=== PATIENT | female | born 1965 | race Caucasian/White ===

== ENCOUNTER → 2019-11-26 10:00 | Outpatient (BNVA) | payer BC, SELFPAY | PROVIDERS: Visit Provider Family Medicine | DX: Z13.6 Encounter for screening for cardiovascular disorders (principal) | CPT/HCPCS: 80053; 80061; 85025 ==

== ENCOUNTER 2020-01-07 14:53 | Outpatient (CLI) | payer BC, SELFPAY ==
--- NOTE | 2020-01-07 15:00 | MM_ITS ---
WS: [id number] BILATERAL SCREENING MAMMOGRAM WITH JONO DISPLACEMENT VIEWS. CAD PERFORMED. HISTORY: screening mammogram COMPARISON: 05/17/2012 Bilateral craniocaudal and mediolateral like views are performed. Jono displacement views in CC and MLO projection also performed. Breasts composition: There are scattered areas of fibroglandular density. Implants are intact. No adjacent calcifications. No asymmetries or nodules. No nipple retraction. MM/[id number] IMPRESSION: BI-RADS: 2-Benign FOLLOW-UP: 1 Year Follow-up
== END 2020-01-07 14:54 | disposition home or self-care (01) ==
LOC: RADSHAW 14:56
PROVIDERS: PCP Family Medicine; Visit Provider Family Medicine
DX: Z12.31 Encounter for screening mammogram for malignant neoplasm of breast (principal)
CPT/HCPCS: 77067

== ENCOUNTER 2020-02-03 08:13 | Emergency (ER) | payer BC, SELFPAY ==
[2020-02-03 08:25] VITALS: BP 155/125; PULSE 91; RESP 18; TEMP 36.3; O2SAT 97; BMI 28.3
--- NOTE | 2020-02-03 08:41 | W.ED.FEMALGU ---
HPI - Female Genitourinary General: Chief complaint: Urogenital-Female Stated complaint: ABD PAIN Time Seen by Provider: 02/03/20 08:23 History of Present Illness: HPI Narrative: 54-year-old female presents emergency room with complaint of right flank mid abdominal pain that began at 3 AM this morning she has had dysuria urgency and frequency she denies any hematuria she did have a little chills at home pain radiates down into the suprapubic area. She has no known history of nephrolithiasis. She is not had any hematuria dysuria urgency or frequency. MD elicited complaint: dysuria Onset (ago): hour(s) Location of symptoms: other (Right side abdominal pain flank/mid abdomen) Severity: moderate Female Urogenital Radiation: Non-Radiating Quality of pain: cramping Consistency: constant Vaginal discharge: none Vaginal bleeding: none Urinary symptoms: Difficulty Urinating, Dysuria, Flank Pain, Frequency and Urgency Exacerbating factors: urination Relieving factors: none Associated symptoms: Reports abdominal pain; Deny short of breath, fevers/chills, headache(s), nausea, rash, syncope, vaginal bleeding, vaginal discharge or weakness Treatment prior to arrival: none Review of Systems Const: Denies: fever(s), chills, body aches, change in appetite, fatigue or malaise ENMT: Denies: throat pain, ear or mastoid pain, nasal discharge or nasal congestion Card: Denies: syncope Resp: Denies: dyspnea, productive cough or non-productive cough GI: Reports: abdominal pain; Denies: nausea : Denies: vaginal discharge Skin/Breast: Denies: rash or pruritus Neuro: Denies: headache(s) PFS ED PFSH: Medical History No pertinent past medical history Surgical History H/O tubal ligation History of breast implant History of D&C Family History Other CAD (coronary artery disease) Cancer Diabetes Stroke Social History Smoking and tobacco status: never smoked Alcohol intake: never Physical Exam Const: COMMON NORMALS: no acute distress GENERAL APPEARANCE: cooperative and comfortable ORIENTATION/CONSCIOUSNESS: Yes awake, Yes oriented to person, Yes oriented to place and Yes oriented to time HENMT: COMMON NORMALS: normocephalic, atraumatic, hearing grossly normal bilaterally, external ears normal, EAC's normal, TM's normal bilaterally, Normal nasal mucous membranes and turbinates present, moist oral mucous membranes and oropharynx normal HEAD & SCALP: normocephalic and atraumatic NOSE: Normal nasal mucous membranes and turbinates present EXTERNAL EAR: Yes external ears normal EXTERNAL AUDITORY CANAL: EAC's normal TYMPANIC MEMBRANE: TM's normal bilaterally Eye: COMMON NORMALS: Equal, round and reactive pupils present, EOMs intact bilaterally, conjunctivae normal and no scleral icterus CONJUNCTIVA: Yes conjunctivae normal PUPIL: Yes Equal, round and reactive pupils present Neck/C-Spine: COMMON NORMALS: full ROM, no lymphadenopathy, supple and no JVD Lymph: LYMPHATIC: no lymphadenopathy noted and no lymphedema noted Resp: COMMON NORMALS: normal respiratory effort, No retractions, No use of accessory muscles and clear to auscultation bilaterally AUSCULTATION: clear to auscultation bilaterally Cardio: COMMON NORMALS: no JVD, regular rate, regular rhythm and No murmurs present (Cardio) RATE: regular rate RHYTHM: regular rhythm GI: COMMON NORMALS: Soft to palpation and No hepatosplenomegaly present AUSCULTATION: Yes normoactive bowel sounds PALPATION: Yes Soft to palpation, No Tenderness to palpation present (GI), No Guarding due to palpation present (GI) and Yes No hepatosplenomegaly present : SPECULUM EXAM - VAGINA: No vaginal bleeding OB/EXTERNAL & SPECULUM: No vaginal bleeding Extremity: COMMON NORMALS: normal to inspection, capillary refill normal, no clubbing, cyanosis or edema, no calf tenderness and no pedal edema Neuro: SENSORIUM/ORIENTATION: Yes oriented to person, Yes oriented to place and Yes oriented to time Skin: COMMON NORMALS: no rashes or lesions noted GENERAL SKIN EXAM: no rashes or lesions noted Course Vital Signs: Vital signs: Vital Signs Temperature 97.3 F L 02/03/20 08:25 Pulse Rate 75 02/03/20 12:54 Respiratory Rate 15 02/03/20 12:54 Blood Pressure 145/75 02/03/20 12:54 Pulse Oximetry 98 08/31/20 12:54 MDM - Female MDM Narrative: Medical decision making narrative: Imaging does not show any evidence of nephrolithiasis. There is moderate constipation she also has a ureterocele. Her renal function does not appear to be compromised. I suspect her dysuria may be due to estrogen deficiency as there is no sign of infection at this time. Encourage her to follow-up with her primary care doctor can use [id number] laxatives to relieve the constipation return if has further problems. Lab Data: Labs: Lab Results 02/03/20 02/03/20 02/03/20 Range/Units 08:22 08:50 08:50 WBC 8.8 (4.0-10.0) 10^3/ uL RBC 4.64 (4.1-5.3) 10^6/u L Hgb 13.7 (11.5-15.3) g/dL Hct 41.5 (37.0-47.0) % MCV 89.4 (81-99) fL MCH 29.5 (28.0-34.0) pg MCHC 33.0 (30.0-36.0) g/dL RDW 12.0 L (12.1-15.1) % Plt Count 217 (130-400) 10^3/c mm MPV 11.7 H (7.4-10.4) fL Neut % (Auto) 73.9 % Lymph % (Auto) 20.7 % [place] % (Auto) 4.2 % Eos % (Auto) 0.5 % Baso % (Auto) 0.2 % Neut # (Auto) 6.52 (1.8-7.7) 10^3/u L Lymph # (Auto) 1.8 (0.8-4.8) 10^3/u L [place] # (Auto) 0.4 (0.2-0.9) 10^3/u L Eos # (Auto) 0.0 (0.0-0.8) 10^3/u L Baso # (Auto) 0.0 (0.0-0.1) 10^3/u L Nucleated RBC % (a uto) 0 % Nucleated RBCs # 0.0 /100WBC Sodium 139 (136-145) mmol/L Potassium 4.4 (3.5-5.1) mmol/L Chloride 103 (98-107) mmol/L Carbon Dioxide 26 (22-29) mmol/L Anion Gap 14.4 (5-19) BUN 25 H (6-20) mg/dL Creatinine 1.1 H (0.5-0.9) mg/dL GFR Calculation 51.8 L (90-130) mL/min Glucose 167 H (65-115) mg/dL Calculated Osmolal ity 289 (285-295) mOsm/k g Calcium 9.4 (8.5-10.5) mg/dL Urine Color Yellow (Yellow) Urine Appearance Clear (CLEAR) Urine pH 6.5 (5-7) Ur Specific Gravit y 1.010 (1.005-1.030) Urine Protein Neg (Negative) Urine Glucose (UA) Norm (Normal) Urine Ketones Negative (Negative) Urine Blood Neg (Negative) Urine Nitrate Negative (Negative) Urine Bilirubin Neg (NEGATIVE) Urine Urobilinogen Norm (Negative) mg/dL Ur Leukocyte Christie ase Negative (Negative) Discharge Plan Discharge Patient Disposition: Home Clinical Impression: Constipation by delayed colonic transit, Ureterocele, Dysuria Condition: Stable Prescriptions: No Action multivitamin Tablet 1 tab PO DAILY RF: 0 vitamin E 1,000 unit Capsule 2,000 unit PO DAILY RF: 0 Calcium 500 500 mg calcium (1,250 mg) Tablet 1,000 mg PO DAILY RF: 0 Vitamin C 500 mg Tablet 1,000 mg PO DAILY RF: 0 biotin 10,000 mcg Capsule 10,000 mcg PO DAILY RF: 0 zinc 50 mg Tablet 100 mg PO DAILY RF: 0 magnesium 250 mg Tablet 500 mg PO DAILY RF: 0 Discharge Orders: Discharge Order (Routine); Ordered 02/03/20 Ordered By: Js Bower Referrals: Cristy Potter DO [Primary Care Provider] - Discharge Diet: Usual diet Discharge Activity: Increase activity as tolerated Activity Restrictions/Additional Instructions: Case management will make an appointment with you for Dr. Ramirez for the incidental finding of the left ureterocele Discharge Date/Time: 02/03/20 12:54 Coding Level of Care Code ED Machine Mover for Jaeg Fwd Exam Comprehensive
--- NOTE | 2020-02-03 08:54 | XRR_ITS ---
PROCEDURE INFORMATION: Exam: XR Abdomen, 1 View Exam date and time: 02/03/2020 9:18 AM Age: 54 years old Clinical indication: Abdominal pain; Localized; Prior surgery; Surgery type: Tubal, dnc; Patient HX: Left sided abdomen pain after eating watermelon; Additional info: Abd pain x 1 week. TECHNIQUE: Imaging protocol: XR of the abdomen. Views: Frontal supine view of the abdomen. 1 View. COMPARISON: No relevant prior studies available. FINDINGS: Gastrointestinal tract: Copious stool, in a pattern of constipation. Intraperitoneal space: Incomplete visualization of the superior most abdomen. Bones/joints: Degenerative change and mild scoliosis. XR/XR KUB [id number] IMPRESSION: Copious stool, in a pattern of constipation.
[2020-02-03 09:00] VITALS: RESP 18
[2020-02-03] MEDS: morphine 4 mg/mL SDV 1 mL 6 MG IVP (09:00)
[2020-02-03 09:01] LABS: Add Urine Microscopic? NO
[2020-02-03 09:04] LABS: Basophils % 0.2 %; Eosinophils % 0.5 %; Hematocrit 41.5 % (37.0-47.0); Hemoglobin 13.7 g/dL (11.5-15.3); Lymphocytes # 1.8 10^3/uL (0.8-4.8); Lymphocytes % 20.7 %; Mean Corpuscular Hemoglobin 29.5 pg (28.0-34.0); Mean Corpuscular Volume 89.4 fL (81-99); Mean Platelet Volume 11.7 fL (7.4-10.4); Monocytes # 0.4 10^3/uL (0.2-0.9); Monocytes % 4.2 %; Neutrophils # 6.52 10^3/uL (1.8-7.7); Neutrophils % 73.9 %; Nucleated Red Blood Cells % 0 %; Platelet Count 217 10^3/cmm (130-400); Red Blood Count 4.64 10^6/uL (4.1-5.3); White Blood Count 8.8 10^3/uL (4.0-10.0)
[2020-02-03] MEDS: ondansetron 2 mg/ML SDV 2 mL 4 MG IVP (09:04)
[2020-02-03 09:11] LABS: Bilirubin Urine Neg (NEGATIVE); Blood Urine Neg (Negative); Glucose Urine UA Norm (Normal); Ketones Urine Negative (Negative); Leukocyte Esterase Urine Negative (Negative); Nitrate Urine Negative (Negative); Protein Urine Neg (Negative); Urine Appearance Clear (CLEAR); Urine Color Yellow (Yellow); Urobilinogen Urine Norm (Negative); pH Urine 6.5 (5-7)
[2020-02-03] MEDS: sodium chloride 0.9% 1,000 ML 999 ML IV (09:11)
[2020-02-03 09:31] LABS: Anion Gap 14.4 (5-19); Blood Urea Nitrogen 25 mg/dL (6-20); Calcium 9.4 mg/dL (8.5-10.5); Carbon Dioxide 26 mmol/L (22-29); Chloride 103 mmol/L (98-107); Glomerular Filtration Rate 51.8 mL/min (90-130); Glucose 167 mg/dL (65-115); Osmolality Calculated 289 mOsm/kg (285-295); Potassium 4.4 mmol/L (3.5-5.1); Sodium 139 mmol/L (136-145)
--- NOTE | 2020-02-03 09:37 | CT_ITS ---
WS: [id number] CT ABDOMEN AND PELVIS WITH CONTRAST HISTORY: abd pain TECHNIQUE: Imaging performed of the abdomen and pelvis with IV contrast. Single phase imaging of the abdomen. Coronal and sagittal reformats are submitted. All CT scans at [facility] use at least one of these dose optimization techniques: automated exposure control; mA and/or kV adjustment per patient size (includes targeted exams where dose is matched to clinical indication); or iterativ e reconstruction. IV CONTRAST: Omnipaque 300; 95 mL IV. Oral contrast: No DLP: 796.19 mGy.cm COMPARISON: 01/05/2011 Lower thorax: Mild dependent changes in the posterior lungs. Bilateral breast implants. Heart is norm al size. Small hiatal hernia. Liver/biliary system: Normal size with no intrahepatic dilatation. Gallbladder: Normal. No gallstones or wall thickening. No pericholecystic fluid. Pancreas: Normal. Spleen: Normal size with a splenule. Adrenal glands: Normal. Right kidney: Normal. Left kidney: Mild dilatation of the renal pelvis and the ureter. No calcifications are identified. Th e ureter is dilated to the urinary bladder. Aorta: Normal. Lymphadenopathy: None. Free fluid: Small amount of free fluid in the RIGHT adnexa. GI tract: Appendix is not definitely identified. There is no evidence for appendicitis. There is rasta ed fecal retention throughout the colon. Abdominal wall: Small ventral abdominal wall hernia. Pelvis: Enlarged heterogeneous uterus. Uterine enlargement has been previously described and probably represents a fibroid uterus. There is a very vague filling defect in the LEFT urinary bladder measuring 3.0 cm. This is contiguous and extends into the LEFT ureter. Bones: Degenerative changes at L1-2. No osteoblastic or osteolytic bone disease. CT/CT abdomen pelvis w con* [id number] IMPRESSION: 1. Mild LEFT hydroureteronephrosis. No ureteral calcifications. 2. Well-rounded filling defect in the LEFT urinary bladder which is contiguous with the LEFT ureter. Intravesical ureterocele was described on the ultrasound from 04/17/2012. Ureterocele may be causing the mild intermittent obstruction of the LEFT kidney. 3. Constipation. 4. Enlarged heterogeneous fibroid uterus. Previously described on 04/17/2013.
[2020-02-03 10:00] VITALS: BP 126/74; PULSE 69; RESP 18; O2SAT 95
[2020-02-03] MEDS: iohexol 300 mg/mL 100 mL Btl IV (10:37)
[2020-02-03 11:30] VITALS: BP 124/71; PULSE 70; RESP 18; O2SAT 94
[2020-02-03 12:54] VITALS: BP 145/75; PULSE 75; RESP 15; O2SAT 98
--- NOTE | 2020-02-03 14:19 | DCPLANNER ---
assurance sourcing manager had message to schedule a followup appointment for patient with Dr. Ramirez. assurance sourcing manager called the office of Dr. Ramirez, spoke with Margarita. assurance sourcing manager gave clinic patients information, was told that patients information would be printed and reviewed. Clinic will call patient with appointment information.
--- NOTE | 2020-02-04 14:11 | DCPLANNER ---
Patient has a follow up appointment scheduled for Tuesday, February 18, 2020 at 10:[address] Ramirez. Clinic will call patient with appointment information.
--- NOTE | 2020-02-27 08:20 | DCPLANNER ---
Patient had a follow up appointment scheduled for 02.18.[address] Ramirez. This appointment was rescheduled to a later date.
== END 2020-02-03 12:54 | disposition home or self-care (01) ==
PROVIDERS: Emergency Provider Family Medicine; PCP Family Medicine
DX: K59.01 Slow transit constipation (principal); N28.89 Other specified disorders of kidney and ureter; R30.0 Dysuria
CPT/HCPCS: 12345; 74018; 74177; 80048; 81003; 85025; 96361; 96374; 96375; 99283; J2270; J2405; J7030; Q9967

== ENCOUNTER → 2021-06-03 16:20 | Outpatient (BNVA) | payer BC, SELFPAY | PROVIDERS: PCP Family Medicine; Visit Provider Nurse Practitioner Family | DX: Z20.822 Contact with and (suspected) exposure to COVID-19 (principal) | CPT/HCPCS: 87635 ==

== ENCOUNTER → 2022-04-14 11:56 | Outpatient (BNVA) | payer BC, SELFPAY | PROVIDERS: PCP Family Medicine; Visit Provider Family Medicine | DX: Z13.6 Encounter for screening for cardiovascular disorders (principal) | CPT/HCPCS: 80053; 80061; 85025 ==

== ENCOUNTER 2022-05-19 09:59 | Outpatient (CLI) | payer BC, SELFPAY ==
--- NOTE | 2022-05-19 10:03 | MM_ITS ---
WS: [id number] BILATERAL SCREENING DIGITAL BREAST MAMMOGRAPHY WITH JONO DISPLACEMENT VIEWS. CAD PERFORMED. HISTORY: screening mammogram COMPARISON: 01/07/2020 and 05/17/2012 Bilateral craniocaudal and mediolateral oblique views are performed with tomosynthesis and SM. Jono displacement views in CC and MLO projection also performed. Breasts composition: There are scattered areas of fibroglandular density. Retropectoral implants are intact. No suspicious mass or calcifications. No nipple retraction. MM/[place] [id number] IMPRESSION: BI-RADS: 2-Benign FOLLOW-UP: 1 Year Follow-up
== END 2022-05-19 10:00 | disposition home or self-care (01) ==
PROVIDERS: PCP Family Medicine; Visit Provider Family Medicine
DX: Z12.31 Encounter for screening mammogram for malignant neoplasm of breast (principal)
CPT/HCPCS: 77063; 77067

== ENCOUNTER → 2022-07-14 09:57 | Outpatient (BNVA) | payer OTHER, SELFPAY | PROVIDERS: PCP Family Medicine; Visit Provider Family Medicine | DX: Z01.419 Encounter for gynecological examination (general) (routine) without abnormal findings (principal) | CPT/HCPCS: 88175 ==

== ENCOUNTER → 2022-12-15 10:50 | Outpatient (BNVA) | payer OTHER, SELFPAY | PROVIDERS: PCP Family Medicine; Visit Provider Family Medicine | DX: R39.9 Unspecified symptoms and signs involving the genitourinary system (principal); R30.0 Dysuria; R10.32 Left lower quadrant pain | CPT/HCPCS: 81003 ==

== ENCOUNTER → 2022-12-16 09:37 | Outpatient (BNVA) | payer OTHER, SELFPAY | PROVIDERS: PCP Family Medicine; Visit Provider Family Medicine | DX: R39.9 Unspecified symptoms and signs involving the genitourinary system (principal); R30.0 Dysuria | CPT/HCPCS: 87086 ==

== ENCOUNTER 2023-01-16 14:25 | Outpatient (CLI) | payer OTHER, SELFPAY ==
--- NOTE | 2023-01-16 15:30 | CT_ITS ---
WS: [id number] CT ABDOMEN AND PELVIS WITH CONTRAST HISTORY: llq pain TECHNIQUE: Imaging performed of the abdomen and pelvis with IV contrast. Single phase imaging of the abdomen. Coronal and sagittal reformats are submitted. All CT scans at [facility] use at [address] one of these dose optimization techniques: automated exposure control; mA and/or kV adjustment per patient size (includes targeted exams where dose is matched to clinical indication); or iterative re construction. IV CONTRAST: Omnipaque 350; 100 mL IV. Oral contrast: Yes. DLP: 413.31 mGy.cm COMPARISON: 02/03/2020 Lower thorax: Lung bases are clear. Bilateral breast implants. Heart is normal size. No hiatal hernia . Liver/biliary system: Normal size with no intrahepatic dilatation. Gallbladder: Normal. No gallstones or wall thickening. No pericholecystic fluid. Pancreas: Normal size pancreas and pancreatic duct. No adjacent inflammation. Spleen: Normal size spleen. No mass or infarct. Adjacent splenule. Adrenal glands: Normal. Right kidney: Normal. Left kidney: Small extrarenal pelvis and parapelvic cysts. No obstruction. Aorta: Normal. Lymphadenopathy: None. Free fluid: None. GI tract: Normal stomach. No small bowel obstruction. Moderate diffuse constipation. The appendix is not visualized. No diverticulitis. Abdominal wall: Fat containing umbilical hernia. Pelvis: No free fluid or adenopathy within the pelvis. Bones: Advanced degenerative disc space narrowing at L1-2 with endplate sclerosis. IMPRESSION: 1. Moderate constipation. Colon is dilated to the level of the mid descending colon. No obstructing lesion is identified. Very slight change in caliber in the mid descending colon. This area can be fur ther evaluated by colonoscopy. 2. No renal obstruction. 3. No ascites or adenopathy.
[2023-01-16] MEDS: iohexol 350 mg/mL 500 mL Btl (per mL) PO (15:44)
[2023-01-16] MEDS: iohexol 350 mg/mL 500 mL Btl (per mL) IV (15:45)
== END 2023-01-16 14:26 | disposition home or self-care (01) ==
PROVIDERS: PCP Family Medicine; Visit Provider Family Medicine
DX: R10.32 Left lower quadrant pain (principal); K59.00 Constipation, unspecified
CPT/HCPCS: 74177; 81003; Q9967

== ENCOUNTER 2023-09-19 10:32 | Outpatient (CLI) | payer OTHER, SELFPAY ==
--- NOTE | 2023-09-19 10:30 | MM_ITS ---
WS: [id number] BILATERAL 3D TOMOSYNTHESIS DIGITAL SCREENING MAMMOGRAPHY WITH CAD CLINICAL INFORMATION: screening HISTORY: Screening mammogram. No current complaints. COMPARISON: 05/19/2022 TECHNIQUE: Bilateral CC and MLO views. FINDINGS: Stable bilateral breast implants. Scattered fibroglandular densities bilaterally. No suspicious focal mass, asymmetry, calcifications, or architectural distortion. No evidence of malignancy. IMPRESSION: MM/[place] [id number] BI-RADS: 2-Benign FOLLOW UP: 1 Year Follow-up Recommend return to annual screening mammography.
== END 2023-09-19 10:33 | disposition home or self-care (01) ==
LOC: RAD 10:33
PROVIDERS: PCP Family Medicine; Visit Provider Family Medicine
DX: Z12.31 Encounter for screening mammogram for malignant neoplasm of breast (principal)
CPT/HCPCS: 77063; 77067

== ENCOUNTER 2023-10-27 10:34 | Outpatient (CLI) | payer OTHER, SELFPAY ==
--- NOTE | 2023-10-27 10:45 | US_ITS ---
WS: [id number] ULTRASOUND SOFT TISSUES LEFT lateral chest wall. HISTORY: left chest wall COMPARISON: None available. TECHNIQUE: 2-D and color Doppler imaging is submitted. Ultrasound directed to the area of interest as directed by the patient. Palpable nodule is along the LEFT lateral chest wall. Slightly hyperechoic nodule in the subcutaneous layer measures 1.0 x 0.5 x 1 .0 cm. No increased vascularity. US/US soft tissue/extremity [id number] IMPRESSION: Small benign-appearing chest wall lipoma.
== END 2023-10-27 10:35 | disposition home or self-care (01) ==
LOC: RAD 10:34
PROVIDERS: PCP Family Medicine; Visit Provider Family Medicine
DX: R22.2 Localized swelling, mass and lump, trunk (principal)
CPT/HCPCS: 76882

== ENCOUNTER 2025-05-02 11:05 | Emergency (ER) | payer OTHER, SELFPAY ==
--- OUTSIDE RECORDS SUMMARY | 2011-05-27 03:31 | XMS_ITS | Continuity of Care Document ---
Author Organization [facility] Address [address] [place] [address] Phone Care Team Providers Care Nursing Professor Name Role Phone Unavailable Unavailable Unavailable Allergies, Adverse Reactions, Alerts Substance Reaction Status Criticality No Known allergies Problems Condition Type Effective Dates (start - stop) Diagnosed Date Clinical Status Comments Anemia Problem (finding) - Active (qualifier value) Onset date 01/20/2011. Advance Directives Directive Yes / No Effective Date File Name No Information Encounters Encounter Description Practice Location Reason(s) For Visit Diagnoses Date Provider Encounter Disposition [facility], [address], [address], [place], [address], tel:[phone] [place] No Information No Information [facility], [address], [address], [place], [address], [place] tel:[phone] [place] anemia (chief complaint) AnemiaExcessive or frequent menstruation No Information Family History Family Member Type Diagnosis Age At Onset Father Problem (finding) coronary arterioscleros is Sister Problem (finding) Maternal history of jimenez betes mellitus Mother Problem (finding) hypertension Payers Payer name Insurance type Identifiers Authorization(s) Com ments No Information Social History Type Description Quantity Date Captured Comments Sex Female No - not Smoking Status No Information Current Gender Female (finding) Chief Complaint And Reason For Visit No Information Plan Of Treatment Date Type Action Status Referral Ordered: OBGYN (related to Excessive or frequent menstruation) ordered Referral Ordered: Referral: OBGYN. Evaluate and treat. ordered History Of Present Illness Encounter Date Complaint History Of Prese nt Illness No Information Functional Status Date Description Comments No Information Instructions Date Instruction Additional Infor mation No Information Assessments Type Assessment Date No Information
--- NOTE | 2025-05-02 11:06 | XRR_ITS ---
PROCEDURE INFORMATION: Exam: XR Chest Exam date and time: 05/02/2025 11:08 AM Age: 59 years old Clinical indication: Pain; Angina pectoris; Additional info: Chest pain TECHNIQUE: Imaging protocol: Radiologic exam of the chest. Views: 1 view. COMPARISON: CR XR shoulder RT min 2V* [id number] 02/28/2023 11:01 AM FINDINGS: Lungs: No active infiltrate or focal parenchymal abnormality. Pulmonary vascularity is normal. Pleural spaces: No pleural effusion. No pneumothorax. Heart/Mediastinum: Normal cardiomediastinal sillhouette. Bones/joints: Unremarkable. XR/XR chest 1V portable [id number] IMPRESSION: No acute cardiopulmonary abnormality.
[2025-05-02 11:21] VITALS: BP 182/68; PULSE 88; RESP 18; TEMP 36.6; O2SAT 100; BMI 28.3
--- NOTE | 2025-05-02 11:22 | ECG_ITS ---
[facility] Date: 2025-05-02 Pat Name: Elsie Stallings Department: Room: Gender: Female Embedded Software Manager: : 1965 Requested By: Ashley Anne Order Number: [id number] Baird MD: Steven Gaytan M.D. Measurements Intervals [place] Rate: 81 P: 48 DE: 139 QRS: 66 QRSD: 96 T: 7 QT: 384 QTc: 448 Interpretive Statements SINUS RHYTHM No previous ECG available for comparison Electronically Signed On 05-03-2025 15:59:57 GAS BOOSTER ENGINEER by Steven Gaytan M.D. [email or web address]
--- NOTE | 2025-05-02 11:33 | W.ED.CHESTPA ---
HPI - Chest Pain General: Chief Complaint: Chest Pain Stated Complaint: chest pressure Time Seen by Provider: 05/02/25 11:14 Source: patient Mode of arrival: ambulatory Limitations: no limitations History of Present Illness: 59-year-old female states she was shopping roughly an hour ago and started having some chest pain states it was a pressure type pain that has since resolved. She denies any fevers she denies any shortness of breath denies any worsening improving factors no history of heart disease is a non-smoker. Related Data Home Medications ?Medication ?Instructions ?Recorded ?Confirmed ascorbic acid (vitamin C) 500 mg 1,000 mg PO DAILY 02/03/20 05/02/25 tablet (Vitamin C) calcium carbonate (Calcium 500) 1,000 mg PO DAILY 02/03/20 05/02/25 magnesium 250 mg tablet 500 mg PO DAILY 02/03/20 05/02/25 multivitamin 1 tab PO DAILY 02/03/20 05/02/25 aspirin 81 mg tablet,delayed 81 mg PO DAILY 12/15/22 05/02/25 release (Adult Low Dose Aspirin) turmeric root extract 500 mg 500 mg PO DAILY 12/15/22 05/02/25 capsule cinnamon bark 500 mg capsule 500 mg PO DAILY 11/14/23 05/02/25 (Cinnamon) Allergies Allergy/AdvReac Type Severity Reaction Status Date / Time No Known Allergies Allergy Verified 05/02/25 10:25 Review of Systems Card: Reports: chest pain [facility] ED PFSH: Medical History (Updated 05/02/25 @ 13:39 by Chaka Palmer MD) No pertinent past medical history Surgical History H/O tubal ligation History of D&C History of breast implant Family History Other CAD (coronary artery disease) Cancer Diabetes Stroke Social History Smoking and tobacco/nicotine status: never used tobacco/nicotine Alcohol intake: never Substance/Drug Use: never Physical Exam Const: COMMON NORMALS: no acute distress, patient oriented x3 and healthy appearing HENMT: COMMON NORMALS: normocephalic and atraumatic HEAD & SCALP: normocephalic and atraumatic Eye: COMMON NORMALS: Equal, round and reactive pupils present and EOMs intact bilaterally PUPIL: Yes Equal, round and reactive pupils present Neck/C-Spine: COMMON NORMALS: full ROM and supple Chest: COMMONS NORMALS: normal inspection of the chest and normal palpation of entire chest wall Resp: COMMON NORMALS: normal respiratory effort, No retractions, No use of accessory muscles and clear to auscultation bilaterally AUSCULTATION: clear to auscultation bilaterally Cardio: COMMON NORMALS: regular rate, regular rhythm and No murmurs present (Cardio) RATE: regular rate RHYTHM: regular rhythm GI: COMMON NORMALS: Normal to inspection, nondistended, normoactive bowel sounds present, Soft to palpation, non-tender and no masses PALPATION: Yes Soft to palpation Extremity: COMMON NORMALS: normal to inspection and full ROM Neuro: COMMON NORMALS: patient oriented x3, moves all extremities and no focal motor deficits Psych: COMMON NORMALS: mental status grossly normal, Normal thought process present and cooperative THOUGHT PROCESS: Normal thought process present Skin: COMMON NORMALS: no rashes or lesions noted and no wounds GENERAL SKIN EXAM: no rashes or lesions noted Course Vital Signs: Vital signs: Vital Signs Temperature 97.8 F 05/02/25 11:21 Pulse Rate 70 05/02/25 12:30 Respiratory Rate 18 05/02/25 11:21 Blood Pressure 187/75 05/02/25 12:30 Pulse Oximetry 97 05/02/25 12:30 Oxygen Delivery Me thod Room Air 05/02/25 12:30 MDM - Chest Pain Medical Decision Making 59-year-old female presents here with chest pain that is since resolved differential includes ACS, pulm emboli, pneumonia, pneumothorax. Did interpret her chest x-ray here showed no acute abnormality she has no signs of pneumothorax or pneumonia. Patient has no signs of pulmonary emboli. EKG here showed normal sinus rhythm heart rate [address] elevation QRS 96 QTc 422. Patient's pain is atypical in nature and has resolved she has no signs of ACS troponin here and repeat troponin were negative I feel she is stable for discharge I did go over all these findings with her she is follow-up her PCP and return if worsening she understands agrees to plan. Medical Records I reviewed the patient's medical records. Lab Data I reviewed the patient's lab results. 05/02/25 11:27 05/02/25 11:27 Radiology Impressions Chest X-Ray 05/02/25 11:06 IMPRESSION: No acute cardiopulmonary abnormality. Laboratory Results WBC 5.60 10^3/uL (3.29-11.43) 05/02/25 11: RBC 4.63 10^6/uL (3.85-5.65) 05/02/25 11: Hgb 13.30 g/dL (11.27-16.99) 05/02/25 11: Hct 41.3 % (36-47) 05/02/25 11: MCV 89.2 fl (85-98) 05/02/25 11: MCH 28.7 pg (27-33) 05/02/25 11: MCHC 32.2 g/dL (30-55) 05/02/25 11: RDW 13.0 % (12.1-15.1) 05/02/25 11: Plt Count 236 10^3/cmm (157-399) 05/02/25 11: MPV 11.0 fL (7.4-10.4) H 05/02/25 11: Neut % (Auto) 47.7 % 05/02/25 11: Lymph % (Auto) 42.9 % 05/02/25 11: [place] % (Auto) 6.8 % 05/02/25 11: Eos % (Auto) 2.0 % 05/02/25 11: Baso % (Auto) 0.4 % 05/02/25 11: Neut # (Auto) 2.68 10^3/uL (1.8-7.7) 05/02/25 11: Lymph # (Auto) 2.4 10^3/uL (0.8-4.8) 05/02/25 11: [place] # (Auto) 0.4 10^3/uL (0.2-0.9) 05/02/25 11: Eos # (Auto) 0.1 10^3/uL (0.0-0.8) 05/02/25 11: Baso # (Auto) 0.0 10^3/uL (0.0-0.1) 05/02/25 11: Nucleated RBC % (auto) 0 % 05/02/25 11:27 Nucleated RBCs # 0.0 /100WBC 05/02/25 11:27 Sodium 140 mmol/L (136-145) 05/02/25 11:27 Potassium 3.4 mmol/L (3.5-5.1) L 05/02/25 11:27 Chloride 103 mmol/L (98-107) 05/02/25 11:27 Carbon Dioxide 25 mmol/L (22-29) 05/02/25 11:27 Anion Gap 15.4 (5-19) 05/02/25 11:27 BUN 21 mg/dL (6-20) H 05/02/25 11:27 Creatinine 0.7 mg/dL (0.5-0.9) 05/02/25 11:27 GFR Calculation 85.6 mL/min (90-130) L 05/02/25 11:27 Glucose 128 mg/dL (65-115) H 05/02/25 11:27 Calculated Osmolality 295 mOsm/kg (285-295) 05/02/25 11:27 Calcium 9.4 mg/dL (8.5-10.5) 05/02/25 11:27 Total Bilirubin 0.3 mg/dL (0.15-1.2) 05/02/25 11:27 AST 15 U/L (0-32) 05/02/25 11:27 ALT 15 U/L (0-33) 05/02/25 11:27 Alkaline Phosphatase 103 U/L (35-105) 05/02/25 11:27 Troponin T Baseline 8 ng/L (0-10) 05/02/25 11:27 Troponin T 120 Minute 6.31 ng/L (0-10) 05/02/25 13:10 Delta Troponin T -1.69 ABS# (0-10) L 05/02/25 13:10 Total Protein 7.4 g/dL (6.6-8.7) 05/02/25 11:27 Albumin 4.9 g/dL (3.5-5.2) 05/02/25 11:27 Globulin 2.5 g/dL (1.3-4.6) 05/02/25 11:27 All radiology interpretation(s) finalized by discharge EKG Data EKG 1: I personally reviewed and interpreted this EKG as follows: EKG interpretation date: 05/02/25 EKG interpretation time: 11:22 Interpretation: nsr hr [address] elevation qrs 96 qtc 422 EKG 2: I personally reviewed and interpreted this EKG as follows: EKG interpretation date: 05/02/25 EKG interpretation time: 13:11 Interpretation: nsr hr [address] elevation qrs 94 qtc 391 Discharge Plan Discharge Patient Disposition: Home Clinical Impression: Atypical chest pain Condition: Stable Prescriptions: No Action aspirin [Adult Low Dose Aspirin] 81 mg tablet,delayed release (DR/EC) 81 mg PO DAILY turmeric root extract 500 mg capsule 500 mg PO DAILY cinnamon bark [Cinnamon] 500 mg capsule 500 mg PO DAILY multivitamin Tablet 1 tab PO DAILY Calcium 500 500 mg calcium (1,250 mg) Tablet 1,000 mg PO DAILY Vitamin C 500 mg Tablet 1,000 mg PO DAILY magnesium 250 mg Tablet 500 mg PO DAILY Discharge Orders: Discharge ED (Routine); Ordered 05/02/25 Ordered By: Chaka Palmer Referrals: Cristy Potter DO [Primary Care Provider, Family Practice] - 4-7 days Discharge Diet: Advance as tolerated Discharge Activity: Resume usual activity Patient Instructions: Chest Pain (ED) Print Language: Kyrgyz Coding Level of Care Code ED Ip Counsel for Chg Fwd Heart Score HEART Score Components History: Slightly Suspicous EKG: Normal Age: Less than 45 yrs Risk Factors: No Risk Factors Known Troponin: Baseline Trop <16 ng/L HEART Score RESULT HEART Score: 0
[2025-05-02 11:34] LABS: Hematocrit 41.3 % (36-47); Hemoglobin 13.30 g/dL (11.27-16.99); Mean Corpuscular HGB Conc 32.2 g/dL (30-55); Mean Corpuscular Hemoglobin 28.7 pg (27-33); Mean Corpuscular Volume 89.2 fl (85-98); Nucleated Red Blood Cells % 0 %; Platelet Count 236 10^3/cmm (157-399); Red Blood Count 4.63 10^6/uL (3.85-5.65); White Blood Count 5.60 10^3/uL (3.29-11.43)
[2025-05-02 11:56] LABS: Troponin(5th) Baseline 8 ng/L (0-10)
[2025-05-02 11:57] LABS: Alanine Aminotransferase 15 U/L (0-33); Albumin Level 4.9 g/dL (3.5-5.2); Alkaline Phosphatase 103 U/L (35-105); Anion Gap 15.4 (5-19); Aspartate Amino Transferase 15 U/L (0-32); Blood Urea Nitrogen 21 mg/dL (6-20); Calcium 9.4 mg/dL (8.5-10.5); Carbon Dioxide 25 mmol/L (22-29); Chloride 103 mmol/L (98-107); Globulin 2.5 g/dL (1.3-4.6); Glucose 128 mg/dL (65-115); Osmolality Calculated 295 mOsm/kg (285-295); Potassium 3.4 mmol/L (3.5-5.1); Sodium 140 mmol/L (136-145); Total Protein 7.4 g/dL (6.6-8.7)
[2025-05-02 12:08] VITALS: BP 174/81; PULSE 76; O2SAT 100
[2025-05-02 12:30] VITALS: BP 187/75; PULSE 70; O2SAT 97
--- NOTE | 2025-05-02 13:06 | ECG_ITS ---
[facility] Pat Name: Elsie Stallings Department: Room: Gender: Female Risk Specialist: : 1965 Requested By: Ashley Anne Order Number: [id number] Oli MD: Steven Gaytan M.D. Measurements Intervals [place] Rate: 61 P: 58 NV: 151 QRS: 64 QRSD: 94 T: 5 QT: 388 QTc: 392 Interpretive Statements SINUS RHYTHM WITH SINUS ARRHYTHMIA Compared to ECG 05/02/2025 11:22:42 No significant changes Electronically Signed On 05-03-2025 17:38:42 NUCLEAR [employer]IT OPERATOR by Steven Gaytan M.D. [email or web address]
[2025-05-02 13:33] LABS: Troponin 5 2HR 6.31 ng/L (0-10)
[2025-05-02 13:34] LABS: Troponin 5 2HR Delta -1.69 ABS# (0-10)
[2025-05-02 13:48] VITALS: BP 146/75; PULSE 71; O2SAT 96
== END 2025-05-02 13:49 | disposition home or self-care (01) ==
PROVIDERS: Physician Assistant; Emergency Provider Emergency Medicine; PCP Family Medicine
DX: R07.89 Other chest pain (principal); Z79.82 Long term (current) use of aspirin
CPT/HCPCS: 71045; 80053; 84484; 85025; 93005; 99285; J9999